=== PATIENT | male | born 1955 | race Caucasian/White ===

== ENCOUNTER 2024-08-24 17:44 | Emergency (ER) | payer BC, SELFPAY ==
[~2024-08-24] VITALS: Ht 182.9 cm; Wt 95.5 kg
[2024-08-24 17:48] VITALS: BP 173/83; TEMP 100.8; O2SAT 96
[2024-08-24] MEDS: predniSONE 20 MG TAB PO ONE ×2 (19:40→20:07)
[2024-08-24] MEDS ORDERED: CEPHALEXIN 500 MG CAP PO ONE (19:40)
[2024-08-24] MEDS ORDERED: NAPR-837 PO (19:48)
[2024-08-24] MEDS ORDERED: PRED20TA PO (19:48)
[2024-08-24] MEDS ORDERED: CEPH500C PO (19:48)
[2024-08-24] MEDS: CEPHALEXIN 500 MG CAP PO ONE ×2 (20:06)
[2024-08-24] MEDS: IBUPROFEN 600MG TAB PO ONE (20:07)
== END 2024-08-24 20:56 | disposition home or self-care (01) ==
LOC: M ED 17:44
DX: L03.116 Cellulitis of left lower limb (principal); M10.072 Idiopathic gout, left ankle and foot; F10.10 Alcohol abuse, uncomplicated; Z79.2 Long term (current) use of antibiotics; Z79.52 Long term (current) use of systemic steroids; Z79.1 Long term (current) use of non-steroidal anti-inflammatories (NSAID)
CPT/HCPCS: 99283; J7512